=== PATIENT | female | born 1955 | race Caucasian/White ===

== ENCOUNTER 2023-03-28 02:40 | Inpatient (IN) | payer OTHER, MEDICAID ==
[2023-03-28] VITALS (7 sets, daily range): BP systolic 115–138
[~2023-03-28] VITALS: Ht 160 cm; Wt 49.4 kg
[2023-03-28 03:12] LABS: BASOPHILS % (AUTO) 0.3 % (0.0-2.0); EOSINOPHILS # (AUTO) 0.4 K/uL (0.0-0.4); HEMATOCRIT 28.1 % (36-48); LYMPHOCYTES # (AUTO) 0.9 K/uL (1.0-5.5); LYMPHOCYTES % (AUTO) 6.6 % (20.5-51.5); MEAN CORPUSCULAR HEMOGLOBIN 26 pg (27-31); MEAN CORPUSCULAR HGB CONC 32 % (32-36); MEAN CORPUSCULAR VOLUME 82 fL (79.0-98.0); MONOCYTES # (AUTO) 0.6 K/uL (0.0-1.0); MONOCYTES % (AUTO) 4.6 % (1.7-9.3); NEUTROPHILS # (AUTO) 11.3 K/uL (1.8-7.7); NEUTROPHILS % (AUTO) 85.5 % (40.0-70.0); PLATELET COUNT (AUTO) 253 K/uL (130-430); RED BLOOD CELL COUNT(AUTO) 3.45 MIL/uL (4.2-6.2); RED CELL DISTRIBUTION WIDTH 15.8 % (9.0-15.0); WHITE BLOOD COUNT (AUTO) 13.2 K/uL (4.8-10.8)
[2023-03-28 03:29] LABS: ANION GAP 9 (5-15); CALCIUM 8.2 mg/dL (8.4-11.0); CHLORIDE 100 mmol/L (98-107); CREATININE 3.43 mg/dL (0.55-1.30); GFR AFRICAN AMERICAN 17 mL/min (>90); GLUCOSE 213 mg/dL (70-99); UREA NITROGEN, BLOOD 85 mg/dL (8-21)
[2023-03-28 03:35] LABS: ALANINE AMINOTRANSFERASE 18 U/L (12-78); ALBUMIN 1.6 g/dL (3.4-4.8); ASPARTATE AMINOTRANSFERASE 21 U/L (10-37); TOTAL BILIRUBIN 0.2 mg/dL (0.0-1.0)
[2023-03-28] MEDS ORDERED: CEFEPIME 2 GM in D5W 100 ML IV ONE (04:00)
[2023-03-28] MEDS ORDERED: VANCOMYCIN HCL 1,000 MG in NS 250 ML IV ONE (04:00)
[2023-03-28] MEDS ORDERED: IPRATROPIUM/ALBUTEROL SULFATE 3 ML AMPUL.NEB (DUONEB) INH PRN (04:45)
[2023-03-28] MEDS ORDERED: NACL 0.9% 1,000 ML IV ONE (04:45)
[2023-03-28] MEDS ORDERED: VANCOMYCIN HCL 1000 MG/VIAL IV ONE (05:26)
[2023-03-28] MEDS ORDERED: ALPR0.5T PO (08:56)
[2023-03-28] MEDS ORDERED: NOR10 PO (08:56)
[2023-03-28] MEDS ORDERED: ACET325T53 PO (08:56)
[2023-03-28] MEDS ORDERED: DOCU-144 PO (08:56)
[2023-03-28] MEDS ORDERED: BISA10SU61 RC (08:56)
[2023-03-28] MEDS ORDERED: ACET-2634 PO (08:56)
[2023-03-28] MEDS ORDERED: MOM PO (09:08)
[2023-03-28] MEDS ORDERED: METO25TA6 PO (09:08)
[2023-03-28] MEDS ORDERED: HYDR-3917 PO (09:08)
[2023-03-28] MEDS ORDERED: LEVE500T9 PO (09:08)
[2023-03-28] MEDS ORDERED: NEU300 PO (09:08)
[2023-03-28] MEDS ORDERED: METH-797 PO (09:08)
[2023-03-28] MEDS ORDERED: MULT-1089 PO (09:08)
[2023-03-28] MEDS ORDERED: MELA5TAB21 PO (09:08)
[2023-03-28] MEDS ORDERED: PYRI25TA4 PO (09:11)
[2023-03-28] MEDS ORDERED: SENN8.6T19 PO (09:11)
[2023-03-28] MEDS ORDERED: PRO40 PO (09:11)
[2023-03-28] MEDS: PIPERACILLIN/TAZOBACTAM 2.25 GM in NS 50 ML IV SCH ×2 (13:21→21:04)
[2023-03-28] MEDS: IPRATROPIUM/ALBUTEROL SULFATE 3 ML AMPUL.NEB (DUONEB) INH SCH ×2 (13:40→19:43)
[2023-03-28] MEDS ORDERED: MILK OF MAGNESIA 30 ML UDC PO PRN (17:30)
[2023-03-28] MEDS ORDERED: NALOXONE HCL 0.4 MG/ML AMP (NARCAN) IVP PRN (17:30)
[2023-03-28] MEDS ORDERED: BISACODYL 10 MG/SUPPOSITORY RC PRN (17:30)
[2023-03-28] MEDS ORDERED: ACETAMINOPHEN 325 MG TABLET PO PRN (17:30)
[2023-03-28] MEDS ORDERED: ACETAMINOPHEN 500 MG TABLET PO PRN (17:30)
[2023-03-28] MEDS ORDERED: amLODIPine BESYLATE 10 MG TABLET PO ONE (17:45)
[2023-03-28] MEDS: GABAPENTIN 300 MG CAPSULE PO SCH (20:58)
[2023-03-28] MEDS: PANTOPRAZOLE SODIUM 40 MG TAB PO SCH (20:58)
[2023-03-28] MEDS: DOCUSATE SODIUM 100 MG CAPSULE PO SCH (20:58)
[2023-03-28] MEDS: levETIRAcetam 500 MG TABLET PO SCH (20:58)
[2023-03-28] MEDS: SENNOSIDES 8.6 MG TABLET PO SCH (20:58)
[2023-03-28] MEDS: ALPRAZolam 0.25 MG TABLET PO PRN (22:05)
[2023-03-29 00:21] VITALS: BP_SYST 114
[2023-03-29] MEDS: IPRATROPIUM/ALBUTEROL SULFATE 3 ML AMPUL.NEB (DUONEB) INH SCH ×4 (01:00→19:47)
[2023-03-29] MEDS: PIPERACILLIN/TAZOBACTAM 2.25 GM in NS 50 ML IV SCH ×3 (06:06→23:04)
[2023-03-29 08:05] VITALS: BP_SYST 123
[2023-03-29] MEDS: METHADONE HCL 10 MG TABLET PO SCH (08:26)
[2023-03-29] MEDS: DOCUSATE SODIUM 100 MG CAPSULE PO SCH ×2 (08:26→20:35)
[2023-03-29] MEDS: levETIRAcetam 500 MG TABLET PO SCH ×2 (08:26→20:35)
[2023-03-29] MEDS: GABAPENTIN 300 MG CAPSULE PO SCH ×2 (08:27→20:35)
[2023-03-29] MEDS: PANTOPRAZOLE SODIUM 40 MG TAB PO SCH ×2 (08:27→20:35)
[2023-03-29] MEDS: MULTIVITAMINS TAB 1 TABLET PO SCH (08:27)
[2023-03-29] MEDS: METOPROLOL TARTRATE 25 MG TABLET PO SCH (08:27)
[2023-03-29] MEDS: amLODIPine BESYLATE 10 MG TABLET PO SCH (08:27)
[2023-03-29 11:08] LABS: BASOPHILS % (AUTO) 0.2 % (0.0-2.0); EOSINOPHILS # (AUTO) 0.5 K/uL (0.0-0.4); EOSINOPHILS % (AUTO) 2.7 % (0.0-4.0); HEMATOCRIT 26.1 % (36-48); HEMOGLOBIN 8.3 g/dL (12.0-16.0); LYMPHOCYTES # (AUTO) 0.4 K/uL (1.0-5.5); LYMPHOCYTES % (AUTO) 2.1 % (20.5-51.5); MEAN CORPUSCULAR HEMOGLOBIN 26 pg (27-31); MEAN CORPUSCULAR HGB CONC 32 % (32-36); MEAN CORPUSCULAR VOLUME 82 fL (79.0-98.0); MONOCYTES # (AUTO) 0.5 K/uL (0.0-1.0); MONOCYTES % (AUTO) 2.5 % (1.7-9.3); NEUTROPHILS # (AUTO) 18.5 K/uL (1.8-7.7); NEUTROPHILS % (AUTO) 92.5 % (40.0-70.0); PLATELET COUNT (AUTO) 294 K/uL (130-430); RED BLOOD CELL COUNT(AUTO) 3.18 MIL/uL (4.2-6.2)
[2023-03-29 11:24] VITALS: BP_SYST 103
[2023-03-29 11:29] LABS: ALBUMIN 1.4 g/dL (3.4-4.8); CALCIUM 7.3 mg/dL (8.4-11.0); CREATININE 2.87 mg/dL (0.55-1.30); TOTAL BILIRUBIN 0.2 mg/dL (0.0-1.0)
[2023-03-29] MEDS ORDERED: FLUCONAZOLE 100 MG TABLET (DIFLUCAN) PO ONE (13:45)
[2023-03-29] MEDS: NACL 0.9% 1,000 ML IV SCH (15:06)
[2023-03-29 15:16] VITALS: BP_SYST 127
[2023-03-29] MEDS: DAPTOmycin 300 MG in NS 50 ML IV SCH (17:06)
[2023-03-29 20:00] VITALS: BP_SYST 113
[2023-03-29] MEDS: HYDROcodone/ACETAMIN 5-325 MG TAB (NORCO/ VICODIN) PO PRN (20:38)
[2023-03-29] MEDS: SENNOSIDES 8.6 MG TABLET PO SCH (20:57)
[2023-03-29] MEDS: NYSTATIN 15 GM TOPICAL POWDER TP SCH (20:57)
[2023-03-29] MEDS: CLOTRIMAZOLE/BETAMET DIPROP 15 GM TUBE TP SCH (20:57)
[2023-03-30] VITALS: BP_SYST 108
[2023-03-30 05:43] LABS: BASOPHILS % (AUTO) 0.2 % (0.0-2.0); EOSINOPHILS # (AUTO) 0.6 K/uL (0.0-0.4); EOSINOPHILS % (AUTO) 3.3 % (0.0-4.0); HEMATOCRIT 26.7 % (36-48); HEMOGLOBIN 8.5 g/dL (12.0-16.0); LYMPHOCYTES # (AUTO) 0.8 K/uL (1.0-5.5); LYMPHOCYTES % (AUTO) 4.2 % (20.5-51.5); MEAN CORPUSCULAR HEMOGLOBIN 26 pg (27-31); MEAN CORPUSCULAR HGB CONC 32 % (32-36); MEAN CORPUSCULAR VOLUME 82 fL (79.0-98.0); MONOCYTES # (AUTO) 0.5 K/uL (0.0-1.0); MONOCYTES % (AUTO) 2.7 % (1.7-9.3); NEUTROPHILS # (AUTO) 16.9 K/uL (1.8-7.7); NEUTROPHILS % (AUTO) 89.6 % (40.0-70.0); PLATELET COUNT (AUTO) 342 K/uL (130-430); RED BLOOD CELL COUNT(AUTO) 3.27 MIL/uL (4.2-6.2); RED CELL DISTRIBUTION WIDTH 15.8 % (9.0-15.0); WHITE BLOOD COUNT (AUTO) 18.9 K/uL (4.8-10.8)
[2023-03-30] MEDS: PIPERACILLIN/TAZOBACTAM 2.25 GM in NS 50 ML IV SCH ×3 (06:04→21:07)
[2023-03-30] MEDS: NACL 0.9% 1,000 ML IV SCH (06:05)
[2023-03-30 06:33] LABS: ALBUMIN 1.4 g/dL (3.4-4.8); CALCIUM 7.9 mg/dL (8.4-11.0); CREATININE 2.71 mg/dL (0.55-1.30); TOTAL BILIRUBIN 0.2 mg/dL (0.0-1.0)
[2023-03-30] MEDS: IPRATROPIUM/ALBUTEROL SULFATE 3 ML AMPUL.NEB (DUONEB) INH SCH ×3 (07:30→19:42)
[2023-03-30 08:00] VITALS: BP_SYST 112
[2023-03-30] MEDS: DOCUSATE SODIUM 100 MG CAPSULE PO SCH ×2 (09:00→21:00)
[2023-03-30] MEDS: PANTOPRAZOLE SODIUM 40 MG TAB PO SCH ×2 (09:14→21:07)
[2023-03-30] MEDS: levETIRAcetam 500 MG TABLET PO SCH ×2 (09:14→21:07)
[2023-03-30] MEDS: FLUCONAZOLE 100 MG TABLET (DIFLUCAN) PO SCH (09:15)
[2023-03-30] MEDS: GABAPENTIN 300 MG CAPSULE PO SCH ×2 (09:15→21:07)
[2023-03-30] MEDS: MULTIVITAMINS TAB 1 TABLET PO SCH (09:15)
[2023-03-30] MEDS: amLODIPine BESYLATE 10 MG TABLET PO SCH (09:16)
[2023-03-30] MEDS: METOPROLOL TARTRATE 25 MG TABLET PO SCH (09:16)
[2023-03-30] MEDS: CLOTRIMAZOLE/BETAMET DIPROP 15 GM TUBE TP SCH ×2 (09:17→21:07)
[2023-03-30] MEDS: NYSTATIN 15 GM TOPICAL POWDER TP SCH ×2 (09:17→21:07)
[2023-03-30] MEDS: METHADONE HCL 10 MG TABLET PO SCH (09:17)
[2023-03-30] MEDS ORDERED: GLUCOSE (DEXTROSE) ORAL GEL -Adults PO PRN (10:30)
[2023-03-30] MEDS ORDERED: D5W 1,000 ML IV PRN (10:30)
[2023-03-30] MEDS ORDERED: DEXTROSE 50%-WATER 50 ML DISP.SYRIN IVP PRN (10:30)
[2023-03-30 11:12] LABS: BILIRUBIN,URINE NEGATIVE (NEGATIVE); COLOR,URINE YELLOW (YELLOW); GLUCOSE,URINE 1+ (NEGATIVE); KETONES,URINE NEGATIVE (NEGATIVE); LEUKOCYTE ESTERASE ,URINE NEGATIVE (NEGATIVE); NITRITE, URINE NEGATIVE (NEGATIVE); PROTEIN URINE 2+ (NEGATIVE); UROBILINOGEN,URINE 0.2 (0.2-1.0)
[2023-03-30 11:24] VITALS: BP_SYST 115
[2023-03-30 11:25] LABS: BLOOD, URINE TRACE (NEGATIVE)
[2023-03-30] MEDS: INSULIN REGULAR, HUMAN 100 UNITS/ML, 3 ML VIAL (humuLIN R) SUBCUT PRN ×3 (11:34→21:40)
[2023-03-30 11:41] LABS: BACTERIA,URINE None Seen /HPF (None Seen); CLARITY/URINE SLIGHTLY CLOUDY (CLEAR); RBC,URINE 0-3 /HPF (0-3); URINE AMORPHOUS URATE 2+ /HPF (None Seen); WBC,URINE 0-3 /HPF (0-3)
[2023-03-30 15:26] VITALS: BP_SYST 116
[2023-03-30] MEDS: HYDROcodone/ACETAMIN 5-325 MG TAB (NORCO/ VICODIN) PO PRN (16:22)
[2023-03-30 20:00] VITALS: BP_SYST 120
[2023-03-30] MEDS: SENNOSIDES 8.6 MG TABLET PO SCH (21:00)
[2023-03-30] MEDS: ALPRAZolam 0.25 MG TABLET PO PRN (21:34)
[2023-03-31] VITALS (7 sets, daily range): BP systolic 114–129
[2023-03-31] MEDS: NACL 0.9% 1,000 ML IV SCH ×2 (00:20→16:49)
[2023-03-31] MEDS: IPRATROPIUM/ALBUTEROL SULFATE 3 ML AMPUL.NEB (DUONEB) INH SCH ×4 (01:00→19:29)
[2023-03-31] MEDS: PIPERACILLIN/TAZOBACTAM 2.25 GM in NS 50 ML IV SCH ×3 (05:22→22:25)
[2023-03-31 05:30] LABS: BASOPHILS % (AUTO) 0.1 % (0.0-2.0); EOSINOPHILS # (AUTO) 0.4 K/uL (0.0-0.4); EOSINOPHILS % (AUTO) 2.5 % (0.0-4.0); HEMATOCRIT 23.2 % (36-48); HEMOGLOBIN 7.5 g/dL (12.0-16.0); LYMPHOCYTES # (AUTO) 0.7 K/uL (1.0-5.5); LYMPHOCYTES % (AUTO) 4.5 % (20.5-51.5); MEAN CORPUSCULAR HEMOGLOBIN 26 pg (27-31); MEAN CORPUSCULAR HGB CONC 32 % (32-36); MEAN CORPUSCULAR VOLUME 81 fL (79.0-98.0); MONOCYTES # (AUTO) 0.4 K/uL (0.0-1.0); MONOCYTES % (AUTO) 2.6 % (1.7-9.3); NEUTROPHILS # (AUTO) 14.9 K/uL (1.8-7.7); NEUTROPHILS % (AUTO) 90.3 % (40.0-70.0); PLATELET COUNT (AUTO) 295 K/uL (130-430); RED BLOOD CELL COUNT(AUTO) 2.87 MIL/uL (4.2-6.2); RED CELL DISTRIBUTION WIDTH 15.5 % (9.0-15.0); WHITE BLOOD COUNT (AUTO) 16.5 K/uL (4.8-10.8)
[2023-03-31 05:32] LABS: ANION GAP 8 (5-15); CHLORIDE 106 mmol/L (98-107); CREATININE 2.51 mg/dL (0.55-1.30); GFR AFRICAN AMERICAN 25 mL/min (>90); GLUCOSE 148 mg/dL (70-99); UREA NITROGEN, BLOOD 65 mg/dL (8-21)
[2023-03-31 05:44] LABS: ALANINE AMINOTRANSFERASE 11 U/L (12-78); ALBUMIN 1.3 g/dL (3.4-4.8); ASPARTATE AMINOTRANSFERASE 10 U/L (10-37); CHOLESTEROL 81 mg/dL (<200); HDL CHOLESTEROL 32 mg/dL (>55); THYROID STIMULATING HORMONE 0.44 uIu/mL (0.34-4.82); TOTAL BILIRUBIN 0.1 mg/dL (0.0-1.0); TRIGLYCERIDES 65 mg/dL (30-150)
[2023-03-31] MEDS: amLODIPine BESYLATE 10 MG TABLET PO SCH (08:10)
[2023-03-31] MEDS: levETIRAcetam 500 MG TABLET PO SCH ×2 (08:11→21:42)
[2023-03-31] MEDS: PANTOPRAZOLE SODIUM 40 MG TAB PO SCH ×2 (08:11→21:43)
[2023-03-31] MEDS: METOPROLOL TARTRATE 25 MG TABLET PO SCH (08:11)
[2023-03-31] MEDS: FLUCONAZOLE 100 MG TABLET (DIFLUCAN) PO SCH (08:12)
[2023-03-31] MEDS: MULTIVITAMINS TAB 1 TABLET PO SCH (08:12)
[2023-03-31] MEDS: GABAPENTIN 300 MG CAPSULE PO SCH ×2 (08:12→21:42)
[2023-03-31] MEDS: DOCUSATE SODIUM 100 MG CAPSULE PO SCH ×2 (08:12→21:00)
[2023-03-31] MEDS: METHADONE HCL 10 MG TABLET PO SCH (08:12)
[2023-03-31] MEDS: ALPRAZolam 0.25 MG TABLET PO PRN (08:19)
[2023-03-31] MEDS: INSULIN REGULAR, HUMAN 100 UNITS/ML, 3 ML VIAL (humuLIN R) SUBCUT PRN ×3 (11:40→21:49)
[2023-03-31] MEDS: CLOTRIMAZOLE/BETAMET DIPROP 15 GM TUBE TP SCH ×2 (13:43→21:45)
[2023-03-31] MEDS: NYSTATIN 15 GM TOPICAL POWDER TP SCH ×2 (13:43→21:42)
[2023-03-31] MEDS: DAPTOmycin 300 MG in NS 50 ML IV SCH (16:49)
[2023-03-31] MEDS: SENNOSIDES 8.6 MG TABLET PO SCH (21:00)
[2023-04-01 00:23] VITALS: BP_SYST 139
[2023-04-01] MEDS: ALPRAZolam 0.25 MG TABLET PO PRN ×2 (02:20→09:49)
[2023-04-01 05:02] LABS: BASOPHILS % (AUTO) 0.2 % (0.0-2.0); EOSINOPHILS # (AUTO) 0.3 K/uL (0.0-0.4); HEMATOCRIT 22.8 % (36-48); HEMOGLOBIN 7.4 g/dL (12.0-16.0); LYMPHOCYTES # (AUTO) 0.7 K/uL (1.0-5.5); LYMPHOCYTES % (AUTO) 4.6 % (20.5-51.5); MEAN CORPUSCULAR HEMOGLOBIN 27 pg (27-31); MEAN CORPUSCULAR HGB CONC 32 % (32-36); MEAN CORPUSCULAR VOLUME 82 fL (79.0-98.0); MONOCYTES # (AUTO) 0.6 K/uL (0.0-1.0); MONOCYTES % (AUTO) 4.1 % (1.7-9.3); NEUTROPHILS # (AUTO) 12.7 K/uL (1.8-7.7); NEUTROPHILS % (AUTO) 89.1 % (40.0-70.0); PLATELET COUNT (AUTO) 289 K/uL (130-430); RED BLOOD CELL COUNT(AUTO) 2.77 MIL/uL (4.2-6.2); RED CELL DISTRIBUTION WIDTH 16.2 % (9.0-15.0); WHITE BLOOD COUNT (AUTO) 14.2 K/uL (4.8-10.8)
[2023-04-01] MEDS: IPRATROPIUM/ALBUTEROL SULFATE 3 ML AMPUL.NEB (DUONEB) INH SCH ×4 (05:14→20:00)
[2023-04-01] MEDS: PIPERACILLIN/TAZOBACTAM 2.25 GM in NS 50 ML IV SCH ×3 (05:35→21:29)
[2023-04-01 05:41] LABS: ALBUMIN 1.1 g/dL (3.4-4.8); CALCIUM 8.2 mg/dL (8.4-11.0); CREATININE 2.47 mg/dL (0.55-1.30); TOTAL BILIRUBIN 0.1 mg/dL (0.0-1.0)
[2023-04-01 08:00] VITALS: BP_SYST 118
[2023-04-01] MEDS: METHADONE HCL 10 MG TABLET PO SCH (09:49)
[2023-04-01] MEDS: PANTOPRAZOLE SODIUM 40 MG TAB PO SCH ×2 (09:50→21:19)
[2023-04-01] MEDS: levETIRAcetam 500 MG TABLET PO SCH ×2 (09:50→21:19)
[2023-04-01] MEDS: GABAPENTIN 300 MG CAPSULE PO SCH ×2 (09:50→21:19)
[2023-04-01] MEDS: MULTIVITAMINS TAB 1 TABLET PO SCH (09:50)
[2023-04-01] MEDS: amLODIPine BESYLATE 10 MG TABLET PO SCH (09:50)
[2023-04-01] MEDS: FLUCONAZOLE 100 MG TABLET (DIFLUCAN) PO SCH (09:50)
[2023-04-01] MEDS: DOCUSATE SODIUM 100 MG CAPSULE PO SCH ×2 (09:50→21:00)
[2023-04-01] MEDS: METOPROLOL TARTRATE 25 MG TABLET PO SCH (09:52)
[2023-04-01] MEDS: NACL 0.9% 1,000 ML IV SCH (09:53)
[2023-04-01] MEDS ORDERED: SODIUM POLYSTYRENE SULFONATE 15 GM/60 ML UDBTL PO ONE (10:00)
[2023-04-01 11:24] VITALS: BP_SYST 141
[2023-04-01] MEDS: NYSTATIN 15 GM TOPICAL POWDER TP SCH ×2 (13:35→21:20)
[2023-04-01] MEDS: INSULIN REGULAR, HUMAN 100 UNITS/ML, 3 ML VIAL (humuLIN R) SUBCUT PRN ×3 (13:38→21:26)
[2023-04-01 15:13] VITALS: BP_SYST 114
[2023-04-01] MEDS ORDERED: FUROSEMIDE 20 MG/2 ML VIAL IVP ONE (15:45)
[2023-04-01] MEDS: CLOTRIMAZOLE/BETAMET DIPROP 15 GM TUBE TP SCH ×2 (18:39→21:00)
[2023-04-01 19:55] VITALS: BP_SYST 129
[2023-04-01] MEDS: SENNOSIDES 8.6 MG TABLET PO SCH (21:00)
[2023-04-01 21:50] VITALS: BP_SYST 125
== END 2023-04-01 23:44 | DRG 871 ==
LOC: SED 02:40 → STU 04:36 → SMU 03-31 11:10
PROVIDERS: ADMIT Family Medicine; ATTEND Family Medicine
PROC: 30233N1 Transfusion of Nonautologous Red Blood Cells into Peripheral Vein, Percutaneous Approach (ICD-10-PCS; principal; 2023-04-01)
DX: A41.9 Sepsis, unspecified organism (principal); J15.9 Unspecified bacterial pneumonia; J96.00 Acute respiratory failure, unspecified whether with hypoxia or hypercapnia; N17.9 Acute kidney failure, unspecified; L03.116 Cellulitis of left lower limb; I13.0 Hypertensive heart and chronic kidney disease with heart failure and stage 1 through stage 4 chronic kidney disease, or unspecified chronic kidney disease; I50.30 Unspecified diastolic (congestive) heart failure; N18.4 Chronic kidney disease, stage 4 (severe); F03.90 Unspecified dementia, unspecified severity, without behavioral disturbance, psychotic disturbance, mood disturbance, and anxiety; G89.4 Chronic pain syndrome; E11.610 Type 2 diabetes mellitus with diabetic neuropathic arthropathy; E11.51 Type 2 diabetes mellitus with diabetic peripheral angiopathy without gangrene; I25.10 Atherosclerotic heart disease of native coronary artery without angina pectoris; D64.9 Anemia, unspecified; L89.159 Pressure ulcer of sacral region, unspecified stage; E11.40 Type 2 diabetes mellitus with diabetic neuropathy, unspecified; Z20.822 Contact with and (suspected) exposure to COVID-19; E11.22 Type 2 diabetes mellitus with diabetic chronic kidney disease; S31.000A Unspecified open wound of lower back and pelvis without penetration into retroperitoneum, initial encounter; X58.XXXA Exposure to other specified factors, initial encounter; Y93.89 Activity, other specified; Y92.89 Other specified places as the place of occurrence of the external cause; Y99.8 Other external cause status; Z74.01 Bed confinement status; Z79.4 Long term (current) use of insulin; Z86.73 Personal history of transient ischemic attack (TIA), and cerebral infarction without residual deficits; Z87.891 Personal history of nicotine dependence; Z95.1 Presence of aortocoronary bypass graft; Z99.3 Dependence on wheelchair
CPT/HCPCS: 36415; 71045; 73030; 76770; 80053; 80061; 81000; 83605; 83880; 84443; 84484; 85025; 86886; 86900; 86901; 86920; 87040; 87070-TC; 87081; 87186-TC; 92610-GN; 93005; 93306; 94640; 94760; 96365; 99291; G0378; J0878; J1940; J2543; J3370; P9021

== ENCOUNTER 2024-01-27 12:21 | Inpatient (IN) | payer OTHER, MEDICAID ==
[~2024-01-27] VITALS: Ht 167.6 cm; Wt 66.3 kg
[2024-01-27] VITALS (9 sets, daily range): BP systolic 14–194; PULSE 72–105; RESP 17–31; TEMP 97.1–102.3; O2SAT 96–100
[~2024-01-27 12:21] MED LIST: ACET-2634 PO; ACET325T53 PO; ALPR0.5T PO; BISA10SU61 RC; DOCU-144 PO; HYDR-3917 PO; LEVE500T9 PO; MELA5TAB21 PO; METH-797 PO; METO25TA6 PO; MOM PO; MULT-1089 PO; NEU300 PO; NOR10 PO; PRO40 PO; PYRI25TA4 PO; SENN8.6T19 PO
[2024-01-27 12:58] LABS: ABG O2 SAT% ESTIMATE 98.1 % (94.0-100.0); BLOOD GAS HCO3 21.3 mmol/L (21.0-27.0); BLOOD GAS PCO2 40.9 mmHg (35.0-45.0)
[2024-01-27 13:02] LABS: HEMATOCRIT 32.9 % (36-48); HEMOGLOBIN 10.9 g/dL (12.0-16.0); MEAN CORPUSCULAR HEMOGLOBIN 28 pg (27-31); MEAN CORPUSCULAR HGB CONC 33 % (32-36); MEAN CORPUSCULAR VOLUME 83 fL (79.0-98.0); PLATELET COUNT (AUTO) 202 K/uL (130-430); RED BLOOD CELL COUNT(AUTO) 3.95 MIL/uL (4.2-6.2); RED CELL DISTRIBUTION WIDTH 17.1 % (9.0-15.0); WHITE BLOOD COUNT (AUTO) 15.4 K/uL (4.8-10.8)
[2024-01-27 13:02] LABS: BLOOD GAS BASE EXCESS -4.3 mmol/L (-3.0-3.0); BLOOD GAS PH 7.334 (7.350-7.450); BLOOD GAS PO2 119.1 mmHg (75.0-100.0)
[2024-01-27 13:21] LABS: ANION GAP 8 (5-15); CARBON DIOXIDE 26 mmol/L (23-29); CHLORIDE 106 mmol/L (98-107); CREATININE 2.23 mg/dL (0.55-1.30); GFR AFRICAN AMERICAN 28 mL/min (>90); GLUCOSE 147 mg/dL (74-106); SODIUM SERUM 140 mmol/L (136-145); UREA NITROGEN, BLOOD 66 mg/dL (8-21)
[2024-01-27 13:29] LABS: GFR NON AFRICAN-AMERICAN 23 mL/min (>90)
[2024-01-27 13:33] LABS: POTASSIUM 6.2 mmol/L (3.5-5.1)
[2024-01-27 13:39] LABS: ANISOCYTOSIS 1+; BAND % (MANUAL) 8 % (0-6); BASOPHILS % (MANUAL) 0 % (0-2); EOSINOPHILS % (MANUAL) 0 % (0-7); LYMPHOCYTES % (MANUAL) 7 % (20-46); MONOCYTES % (MANUAL) 1 % (0-11); PLATELET ESTIMATE ADEQUATE (ADEQUATE)
[2024-01-27] MEDS ORDERED: CALCIUM CHLORIDE 1 GM/10ML VIAL (13.6 mEq Ca++/VIAL) IV ONE (13:45)
[2024-01-27] MEDS ORDERED: PIPERACILLIN/TAZO 4.5 GM in NS 100 ML IV ONE (14:00)
[2024-01-27 14:19] LABS: BILIRUBIN,URINE NEGATIVE (NEGATIVE); BLOOD, URINE 3+ (NEGATIVE); CLARITY/URINE CLEAR (CLEAR); COLOR,URINE YELLOW (YELLOW); GLUCOSE,URINE TRACE (NEGATIVE); KETONES,URINE NEGATIVE (NEGATIVE); LEUKOCYTE ESTERASE ,URINE NEGATIVE (NEGATIVE); NITRITE, URINE NEGATIVE (NEGATIVE); PH,URINE 6.5 (5.0-8.0); PROTEIN URINE 3+ (NEGATIVE); UROBILINOGEN,URINE 0.2 (0.2-1.0)
[2024-01-27 14:49] LABS: RBC,URINE >100 /HPF (0-3); WBC,URINE 0-3 /HPF (0-3)
[2024-01-27] MEDS ORDERED: HYDR-3927 PO (14:49)
[2024-01-27] MEDS ORDERED: FURO-149 PO (14:49)
[2024-01-27] MEDS ORDERED: SSNOVOLOG SUBCUT (14:49)
[2024-01-27] MEDS ORDERED: CALC667T6 PO (14:49)
[2024-01-27] MEDS ORDERED: NEPH PO (14:49)
[2024-01-27] MEDS ORDERED: MORP15TA PO (14:49)
[2024-01-27 14:50] LABS: BACTERIA,URINE FEW /HPF (None Seen); MUCUS,URINE 1+ /LPF (None Seen)
[2024-01-27] MEDS: NITROGLYCERIN 1 INCH (GM) OINT. TP ONE (15:13)
[2024-01-27] MEDS: FUROSEMIDE 100 MG/10 ML VIAL IVP ONE (15:13)
[2024-01-27] MEDS ORDERED: NALOXONE HCL 0.4 MG/ML AMP (NARCAN) IVP PRN ×3 (18:45→19:00)
[2024-01-27] MEDS ORDERED: MORPHINE 2 MG/ML INJ. SYRINGE IVP PRN (19:00)
[2024-01-27] MEDS: MORPHINE 2 MG/ML INJ. SYRINGE IVP ONE (19:02)
[2024-01-27] MEDS: HEPARIN SODIUM,PORCINE 5,000 UNITS/ML VIAL MC ONE (19:30)
[2024-01-27] MEDS: ACETAMINOPHEN 650 MG SUPP.RECT RC PRN (20:07)
[2024-01-27] MEDS: SODIUM BICARBONATE 8.4% JECT 50 MEQ/50 ML SYRINGE IVP ONE (21:00)
[2024-01-27] MEDS: CALCIUM CHLORIDE 1 GM/10 ML DISP.SYRIN (14 mEq Ca++/SYR) IV ONE (21:00)
[2024-01-27] MEDS: DEXTROSE 50% JECT 50 ML DISP.SYRIN IVP ONE (21:00)
[2024-01-27] MEDS: SODIUM POLYSTYRENE SULFONATE 15 GM/60 ML UDBTL PO ONE (21:00)
[2024-01-27] MEDS: INSULIN REGULAR, HUMAN 10 UNITS/0.1 ML, 3 ML VIAL IVP ONE (21:00)
[2024-01-27 21:57] LABS: CALCIUM 8.6 mg/dL (8.4-11.0); CREATININE 1.62 mg/dL (0.55-1.30); POTASSIUM 4.6 mmol/L (3.5-5.1)
[2024-01-27 22:00] LABS: INR 1.1 (0.8-1.2); PROTHROMBIN TIME 11.2 SECS (9.5-12.5)
[2024-01-27] MEDS: NITROGLYCERIN 1 INCH (GM) OINT. TP SCH (22:00)
[2024-01-27 22:01] LABS: ALBUMIN 2.8 g/dL (3.4-4.8); TOTAL BILIRUBIN 0.4 mg/dL (0.0-1.0); TOTAL PROTEIN, SERUM 7.9 g/dL (6.4-8.3)
[2024-01-27] MEDS: VANCOMYCIN HCL 1,000 MG in NS 250 ML IV ONE (22:23)
[2024-01-28] VITALS (17 sets, daily range): BP systolic 103–180; PULSE 76–104; RESP 13–22; TEMP 98.9–99.9; O2SAT 94–99
[2024-01-28 04:38] LABS: BASOPHILS % (AUTO) 0.1 % (0.0-2.0); EOSINOPHILS % (AUTO) 0.1 % (0.0-4.0); HEMATOCRIT 31.8 % (36-48); HEMOGLOBIN 10.4 g/dL (12.0-16.0); LYMPHOCYTES # (AUTO) 0.5 K/uL (1.0-5.5); LYMPHOCYTES % (AUTO) 3.1 % (20.5-51.5); MEAN CORPUSCULAR HEMOGLOBIN 27 pg (27-31); MEAN CORPUSCULAR HGB CONC 33 % (32-36); MEAN CORPUSCULAR VOLUME 83 fL (79.0-98.0); MONOCYTES # (AUTO) 0.4 K/uL (0.0-1.0); MONOCYTES % (AUTO) 2.6 % (1.7-9.3); NEUTROPHILS # (AUTO) 15.7 K/uL (1.8-7.7); NEUTROPHILS % (AUTO) 94.1 % (40.0-70.0); PLATELET COUNT (AUTO) 161 K/uL (130-430); RED BLOOD CELL COUNT(AUTO) 3.85 MIL/uL (4.2-6.2); RED CELL DISTRIBUTION WIDTH 16.7 % (9.0-15.0); WHITE BLOOD COUNT (AUTO) 16.7 K/uL (4.8-10.8)
[2024-01-28 05:02] LABS: ALBUMIN 2.6 g/dL (3.4-4.8); CALCIUM 8.7 mg/dL (8.4-11.0); CREATININE 1.92 mg/dL (0.55-1.30); POTASSIUM 4.6 mmol/L (3.5-5.1); TOTAL BILIRUBIN 0.4 mg/dL (0.0-1.0); TOTAL PROTEIN, SERUM 7.5 g/dL (6.4-8.3); VANCOMYCIN,RANDOM 23.2 ug/mL (20.0-30.0)
[2024-01-28] MEDS ORDERED: ACETAMINOPHEN 325 MG TABLET PO PRN (07:30)
[2024-01-28] MEDS ORDERED: INSULIN ASPART 100 UNITS/ML, 10 ML VIAL (NovoLOG) SUBCUT PRN (07:30)
[2024-01-28] MEDS: MORPHINE 2 MG/ML INJ. SYRINGE IVP PRN (07:42)
[2024-01-28] MEDS: hydrALAZINE HCL 20 MG/ML VIAL IVP PRN (08:41)
[2024-01-28] MEDS ORDERED: PYRIDOXINE HCL 50 MG PO SCH (09:00)
[2024-01-28] MEDS ORDERED: NON-FORMULARY MEDICATION (Calcium Acetate 2 TAB) PO SCH (09:00)
[2024-01-28] MEDS: MORPHINE 4 MG INJ. 4 MG/ML VIAL IVP PRN (09:57)
[2024-01-28] MEDS: HALOPERIDOL 5 MG TABLET (HALDOL) PO ONE (09:57)
[2024-01-28] MEDS: ONDANSETRON HCL 4 MG/2 ML VIAL IVP PRN (09:58)
[2024-01-28] MEDS: levETIRAcetam 500 MG TABLET PO SCH (09:58)
[2024-01-28] MEDS: METOPROLOL TARTRATE 25 MG TABLET PO SCH (09:59)
[2024-01-28] MEDS: PYRIDOXINE HCL 50 MG TABLET PO SCH (10:00)
[2024-01-28] MEDS: CALCIUM ACETATE 667 MG CAP PO SCH (10:00)
[2024-01-28] MEDS ORDERED: ALPR0.25 PO (11:41)
[2024-01-28] MEDS ORDERED: MORP-92 PO (11:41)
[2024-01-28] MEDS: QUEtiapine FUMARATE 25 MG TABLET PO ONE (13:02)
[2024-01-28] MEDS: LEVOFLOXACIN 250 MG/D5W 50 ML IV SCH (19:09)
[2024-01-28] MEDS: NYSTATIN 15 GM TOPICAL POWDER TP SCH (21:00)
[2024-01-28] MEDS: HALOPERIDOL 5 MG TABLET (HALDOL) PO SCH (21:19)
[2024-01-28] MEDS: QUEtiapine FUMARATE 25 MG TABLET PO SCH (21:19)
[2024-01-28] MEDS: VANCOMYCIN HCL 750 MG in NS 250 ML IV SCH (21:19)
[2024-01-29 00:08] VITALS: BP_SYST 89; PULSE 90; RESP 17; TEMP 97.2; O2SAT 100
[2024-01-29 05:53] LABS: BASOPHILS % (AUTO) 0.4 % (0.0-2.0); EOSINOPHILS # (AUTO) 0.1 K/uL (0.0-0.4); EOSINOPHILS % (AUTO) 0.8 % (0.0-4.0); HEMATOCRIT 26.7 % (36-48); HEMOGLOBIN 8.9 g/dL (12.0-16.0); LYMPHOCYTES # (AUTO) 0.9 K/uL (1.0-5.5); LYMPHOCYTES % (AUTO) 10.9 % (20.5-51.5); MEAN CORPUSCULAR HEMOGLOBIN 27 pg (27-31); MEAN CORPUSCULAR HGB CONC 33 % (32-36); MEAN CORPUSCULAR VOLUME 82 fL (79.0-98.0); MONOCYTES # (AUTO) 0.6 K/uL (0.0-1.0); MONOCYTES % (AUTO) 7.1 % (1.7-9.3); NEUTROPHILS # (AUTO) 6.7 K/uL (1.8-7.7); NEUTROPHILS % (AUTO) 80.8 % (40.0-70.0); PLATELET COUNT (AUTO) 127 K/uL (130-430); RED BLOOD CELL COUNT(AUTO) 3.25 MIL/uL (4.2-6.2); WHITE BLOOD COUNT (AUTO) 8.3 K/uL (4.8-10.8)
[2024-01-29 06:24] LABS: ALBUMIN 2.3 g/dL (3.4-4.8); CREATININE 2.52 mg/dL (0.55-1.30); POTASSIUM 4.8 mmol/L (3.5-5.1); THYROID STIMULATING HORMONE 0.51 uIu/mL (0.34-4.82); TOTAL BILIRUBIN 0.3 mg/dL (0.0-1.0); TOTAL PROTEIN, SERUM 6.6 g/dL (6.4-8.3)
[2024-01-29 08:00] VITALS: BP_SYST 129; PULSE 83; RESP 16; TEMP 98.2; O2SAT 97
[2024-01-29] MEDS ORDERED: HEPARIN SODIUM, PORCINE 10,000 UNITS/ 10 ML VIAL MC ONE (09:45)
[2024-01-29 11:27] VITALS: BP_SYST 81; PULSE 88; RESP 16; TEMP 97; O2SAT 100
[2024-01-29] MEDS: INSULIN LISPRO SLIDING SCALE 100 UNITS/ML, 3 ML VIAL (humaLOG) SUBCUT PRN (13:26)
[2024-01-29 16:09] VITALS: BP_SYST 89; PULSE 80; RESP 15; TEMP 97; O2SAT 100
[2024-01-29] MEDS ORDERED: NALOXONE HCL 0.4 MG/ML AMP (NARCAN) IVP PRN (17:30)
[2024-01-29] MEDS: HYDROcodone/ACETAMIN 5-325 MG TAB (NORCO/ VICODIN) PO PRN (18:36)
[2024-01-29] MEDS: BALSAM PERU/CASTOR OIL 56.7 GM OINT...G. TP SCH (18:37)
[2024-01-29] MEDS: NYSTATIN 15 GM TOPICAL POWDER TP SCH (22:54)
[2024-01-29] MEDS: TEMAZEPAM 15 MG CAPSULE PO PRN (23:28)
[2024-01-30] VITALS (7 sets, daily range): BP systolic 89–175; PULSE 69–78; RESP 16–20; TEMP 97.2–97.7; O2SAT 98–100
[2024-01-30] MEDS ORDERED: QUEtiapine FUMARATE 25 MG TABLET PO SCH (21:00)
[2024-01-31] MEDS ORDERED: FLUoxetine HCL 10 MG CAPSULE (PROzac) PO SCH (09:00)
[2024-02-02] MEDS ORDERED: EPOETIN ALFA-EPBX 4,000 UNITS/ML VIAL SUBCUT SCH (09:00)
== END 2024-01-30 17:45 | DRG 871 ==
LOC: SED 12:21 → SIC 14:43 → STU 01-28 17:27
PROVIDERS: ADMIT Internal Medicine; ATTEND Internal Medicine
PROC: 5A09357 Assistance with Respiratory Ventilation, Less than 24 Consecutive Hours, Continuous Positive Airway Pressure (ICD-10-PCS; principal; 2024-01-27)
PROC: 5A1D70Z Performance of Urinary Filtration, Intermittent, Less than 6 Hours Per Day (ICD-10-PCS; 2024-01-27)
PROC: 05HY33Z Insertion of Infusion Device into Upper Vein, Percutaneous Approach (ICD-10-PCS; 2024-01-27)
PROC: 5A1D70Z Performance of Urinary Filtration, Intermittent, Less than 6 Hours Per Day (ICD-10-PCS; 2024-01-29)
DX: A41.02 Sepsis due to Methicillin resistant Staphylococcus aureus (principal); E43 Unspecified severe protein-calorie malnutrition; I50.43 Acute on chronic combined systolic (congestive) and diastolic (congestive) heart failure; N18.6 End stage renal disease; J96.01 Acute respiratory failure with hypoxia; I13.2 Hypertensive heart and chronic kidney disease with heart failure and with stage 5 chronic kidney disease, or end stage renal disease; E87.5 Hyperkalemia; Z66 Do not resuscitate; I25.10 Atherosclerotic heart disease of native coronary artery without angina pectoris; G89.4 Chronic pain syndrome; G40.909 Epilepsy, unspecified, not intractable, without status epilepticus; E78.5 Hyperlipidemia, unspecified; D64.9 Anemia, unspecified; E11.51 Type 2 diabetes mellitus with diabetic peripheral angiopathy without gangrene; E11.40 Type 2 diabetes mellitus with diabetic neuropathy, unspecified; E83.39 Other disorders of phosphorus metabolism; E11.22 Type 2 diabetes mellitus with diabetic chronic kidney disease; Z99.2 Dependence on renal dialysis; Z95.1 Presence of aortocoronary bypass graft; Z79.4 Long term (current) use of insulin; Z87.01 Personal history of pneumonia (recurrent); Z74.01 Bed confinement status; Z68.23 Body mass index [BMI] 23.0-23.9, adult
CPT/HCPCS: 36415; 36600; 71045; 80048; 80053; 80202; 81000; 81001; 81015; 82803; 82948; 83880; 84443; 84484; 85007; 85025; 85027; 85610; 85730; 87040; 87081; 87186; 90935; 90937; 93005; 93306; 94660; 94760; 99291; G0378; J0360; J1644; J1940; J1956; J2270; J2405; J2543; J3370; J7050

== ENCOUNTER 2024-03-31 16:16 | Inpatient (IN) | payer OTHER, MEDICAID ==
[~2024-03-31] VITALS: Ht 152.4 cm; Wt 76.4 kg
[~2024-03-31 16:16] MED LIST changes: +ALPR0.25 PO; -ALPR0.5T PO; +CALC667T6 PO; +FURO-149 PO; +HYDR-3927 PO; -MELA5TAB21 PO; -METH-797 PO; +MORP-92 PO; -MULT-1089 PO; +NEPH PO; -PYRI25TA4 PO; +SSNOVOLOG SUBCUT
[2024-03-31 16:17] VITALS: BP_SYST 214; PULSE 131; RESP 26; TEMP 96.2; O2SAT 98
[2024-03-31] MEDS: IPRATROPIUM/ALBUTEROL SULFATE 3 ML AMPUL.NEB (DUONEB) INH ONE ×2 (16:48→17:08)
[2024-03-31 16:53] LABS: BASOPHILS % (AUTO) 0.4 % (0.0-2.0); EOSINOPHILS # (AUTO) 0.1 K/uL (0.0-0.4); EOSINOPHILS % (AUTO) 0.5 % (0.0-4.0); HEMATOCRIT 33.8 % (36-48); HEMOGLOBIN 10.8 g/dL (12.0-16.0); LYMPHOCYTES # (AUTO) 1.5 K/uL (1.0-5.5); LYMPHOCYTES % (AUTO) 13.5 % (20.5-51.5); MEAN CORPUSCULAR HEMOGLOBIN 26 pg (27-31); MEAN CORPUSCULAR HGB CONC 32 % (32-36); MEAN CORPUSCULAR VOLUME 81 fL (79.0-98.0); MONOCYTES # (AUTO) 0.7 K/uL (0.0-1.0); MONOCYTES % (AUTO) 6.1 % (1.7-9.3); NEUTROPHILS % (AUTO) 79.5 % (40.0-70.0); PLATELET COUNT (AUTO) 329 K/uL (130-430); RED BLOOD CELL COUNT(AUTO) 4.16 MIL/uL (4.2-6.2); RED CELL DISTRIBUTION WIDTH 16.5 % (9.0-15.0); WHITE BLOOD COUNT (AUTO) 11.3 K/uL (4.8-10.8)
[2024-03-31 17:11] LABS: INR 1.4 (0.8-1.2); PROTHROMBIN TIME 13.9 SECS (9.5-12.5)
[2024-03-31 17:46] LABS: ANION GAP 15 (5-15); CALCIUM 8.9 mg/dL (8.4-11.0); CARBON DIOXIDE 25 mmol/L (23-29); CHLORIDE 98 mmol/L (98-107); CREATINE KINASE, TOTAL 34 U/L (26-192); CREATININE 2.49 mg/dL (0.55-1.30); GFR AFRICAN AMERICAN 25 mL/min (>90); GLUCOSE 134 mg/dL (74-106); LACTATE DEHYDROGENASE 132 U/L (81-234); POTASSIUM 3.6 mmol/L (3.5-5.1); SODIUM SERUM 138 mmol/L (136-145); UREA NITROGEN, BLOOD 21 mg/dL (8-21)
[2024-03-31 17:47] LABS: GFR NON AFRICAN-AMERICAN 20 mL/min (>90)
[2024-03-31] MEDS ORDERED: cefTRIAXone 1 GM VIAL ONE (18:01)
[2024-03-31] MEDS: cefTRIAXone 1 GM in D5W 50 ML IV ONE (18:05)
[2024-03-31 18:23] LABS: BILIRUBIN,URINE NEGATIVE (NEGATIVE); BLOOD, URINE 2+ (NEGATIVE); CLARITY/URINE CLEAR (CLEAR); COLOR,URINE YELLOW (YELLOW); GLUCOSE,URINE NEGATIVE (NEGATIVE); KETONES,URINE TRACE (NEGATIVE); LEUKOCYTE ESTERASE ,URINE 3+ (NEGATIVE); NITRITE, URINE NEGATIVE (NEGATIVE); PROTEIN URINE 3+ (NEGATIVE); UROBILINOGEN,URINE 0.2 (0.2-1.0)
[2024-03-31 18:27] LABS: BACTERIA,URINE MANY /HPF (None Seen)
[2024-03-31] MEDS: IPRATROPIUM/ALBUTEROL SULFATE 3 ML AMPUL.NEB (DUONEB) INH SCH (19:00)
[2024-03-31] MEDS: FUROSEMIDE 100 MG/10 ML VIAL IVP ONE (19:42)
[2024-03-31] MEDS: D5/0.45 NS 1,000 ML IV SCH (19:43)
[2024-03-31 20:40] VITALS: BP_SYST 114; PULSE 80; O2SAT 98
[2024-03-31] MEDS: PIPERACILLIN/TAZOBACTAM 2.25 GM in NS 50 ML IV SCH (22:43)
[2024-03-31 23:00] VITALS: BP_SYST 117; PULSE 81; RESP 20; TEMP 98.2; O2SAT 100
[2024-04-01] VITALS (8 sets, daily range): BP systolic 114–137; PULSE 70–81; RESP 16–18; TEMP 97.9–98.7; O2SAT 94–97
[2024-04-01] MEDS ORDERED: BISACODYL 10 MG/SUPPOSITORY RC PRN (08:15)
[2024-04-01] MEDS: GABAPENTIN 400 MG CAPSULE PO SCH (10:38)
[2024-04-01] MEDS: ATORVASTATIN 20 MG TABLET PO SCH (10:39)
[2024-04-01] MEDS: PANTOPRAZOLE SODIUM 40 MG TAB PO SCH (10:39)
[2024-04-01] MEDS: METOPROLOL TARTRATE 25 MG TABLET PO SCH (10:39)
[2024-04-01] MEDS: amLODIPine BESYLATE 5 MG TABLET PO SCH (10:39)
[2024-04-01] MEDS: levETIRAcetam 500 MG TABLET PO SCH (10:39)
[2024-04-01 10:45] LABS: BASOPHILS % (AUTO) 0.3 % (0.0-2.0); EOSINOPHILS # (AUTO) 0.1 K/uL (0.0-0.4); EOSINOPHILS % (AUTO) 1.4 % (0.0-4.0); HEMATOCRIT 30.8 % (36-48); HEMOGLOBIN 9.8 g/dL (12.0-16.0); LYMPHOCYTES # (AUTO) 0.8 K/uL (1.0-5.5); MEAN CORPUSCULAR HEMOGLOBIN 26 pg (27-31); MEAN CORPUSCULAR HGB CONC 32 % (32-36); MEAN CORPUSCULAR VOLUME 82 fL (79.0-98.0); MONOCYTES # (AUTO) 0.4 K/uL (0.0-1.0); MONOCYTES % (AUTO) 6.5 % (1.7-9.3); NEUTROPHILS # (AUTO) 5.2 K/uL (1.8-7.7); NEUTROPHILS % (AUTO) 79.8 % (40.0-70.0); PLATELET COUNT (AUTO) 260 K/uL (130-430); RED BLOOD CELL COUNT(AUTO) 3.77 MIL/uL (4.2-6.2); RED CELL DISTRIBUTION WIDTH 16.6 % (9.0-15.0); WHITE BLOOD COUNT (AUTO) 6.6 K/uL (4.8-10.8)
[2024-04-01 15:40] LABS: ALBUMIN 2.2 g/dL (3.4-4.8); CALCIUM 8.1 mg/dL (8.4-11.0); CREATININE 2.99 mg/dL (0.55-1.30); POTASSIUM 3.5 mmol/L (3.5-5.1); TOTAL BILIRUBIN 0.4 mg/dL (0.0-1.0); TOTAL PROTEIN, SERUM 6.4 g/dL (6.4-8.3)
[2024-04-01] MEDS: VANCOMYCIN HCL 750 MG in NS 250 ML IV SCH (17:05)
[2024-04-01] MEDS: IPRATROPIUM/ALBUTEROL SULFATE 3 ML AMPUL.NEB (DUONEB) INH SCH (19:35)
[2024-04-02] VITALS (9 sets, daily range): BP systolic 102–124; PULSE 68–79; RESP 16–18; TEMP 96.7–98.2; O2SAT 93–100
[2024-04-02 05:40] LABS: BASOPHILS % (AUTO) 0.2 % (0.0-2.0); EOSINOPHILS # (AUTO) 0.3 K/uL (0.0-0.4); HEMATOCRIT 29.5 % (36-48); HEMOGLOBIN 9.4 g/dL (12.0-16.0); LYMPHOCYTES # (AUTO) 0.7 K/uL (1.0-5.5); LYMPHOCYTES % (AUTO) 7.9 % (20.5-51.5); MEAN CORPUSCULAR HEMOGLOBIN 26 pg (27-31); MEAN CORPUSCULAR HGB CONC 32 % (32-36); MEAN CORPUSCULAR VOLUME 82 fL (79.0-98.0); MONOCYTES # (AUTO) 0.5 K/uL (0.0-1.0); MONOCYTES % (AUTO) 6.2 % (1.7-9.3); NEUTROPHILS # (AUTO) 6.8 K/uL (1.8-7.7); NEUTROPHILS % (AUTO) 82.7 % (40.0-70.0); PLATELET COUNT (AUTO) 248 K/uL (130-430); RED BLOOD CELL COUNT(AUTO) 3.59 MIL/uL (4.2-6.2); RED CELL DISTRIBUTION WIDTH 16.4 % (9.0-15.0); WHITE BLOOD COUNT (AUTO) 8.3 K/uL (4.8-10.8)
[2024-04-02 06:09] LABS: ALBUMIN 2.3 g/dL (3.4-4.8); CALCIUM 8.3 mg/dL (8.4-11.0); CREATININE 3.17 mg/dL (0.55-1.30); POTASSIUM 3.4 mmol/L (3.5-5.1); TOTAL BILIRUBIN 0.3 mg/dL (0.0-1.0); TOTAL PROTEIN, SERUM 6.5 g/dL (6.4-8.3)
[2024-04-02] MEDS ORDERED: NALOXONE HCL 0.4 MG/ML AMP (NARCAN) IVP PRN (11:45)
[2024-04-02] MEDS: HYDROcodone/ACETAMIN 5-325 MG TAB (NORCO/ VICODIN) PO PRN (11:53)
[2024-04-02] MEDS: HEPARIN SODIUM,PORCINE 5,000 UNITS/ML VIAL ONE (13:19)
[2024-04-02] MEDS: HEPARIN SODIUM, PORCINE 10,000 UNITS/ 10 ML VIAL MC ONE (13:30)
[2024-04-02] MEDS: ONDANSETRON HCL 4 MG/2 ML VIAL IVP PRN (22:17)
[2024-04-03] VITALS (8 sets, daily range): BP systolic 117–140; PULSE 71–79; RESP 16–20; TEMP 97.4–98.2; O2SAT 94–98
[2024-04-03] MEDS: LOPERAMIDE HCL 2 MG CAPSULE PO ONE (14:15)
[2024-04-04] VITALS (7 sets, daily range): BP systolic 129–143; PULSE 57–89; RESP 16–20; TEMP 96.8–99.2; O2SAT 92–97
[2024-04-04 07:51] LABS: CREATININE 3.41 mg/dL (0.55-1.30); POTASSIUM 3.7 mmol/L (3.5-5.1)
[2024-04-04 07:55] LABS: BASOPHILS % (AUTO) 0.3 % (0.0-2.0); EOSINOPHILS # (AUTO) 0.3 K/uL (0.0-0.4); EOSINOPHILS % (AUTO) 4.9 % (0.0-4.0); HEMATOCRIT 29.4 % (36-48); HEMOGLOBIN 9.4 g/dL (12.0-16.0); LYMPHOCYTES # (AUTO) 0.7 K/uL (1.0-5.5); LYMPHOCYTES % (AUTO) 10.8 % (20.5-51.5); MEAN CORPUSCULAR HEMOGLOBIN 26 pg (27-31); MEAN CORPUSCULAR HGB CONC 32 % (32-36); MEAN CORPUSCULAR VOLUME 81 fL (79.0-98.0); MONOCYTES # (AUTO) 0.4 K/uL (0.0-1.0); MONOCYTES % (AUTO) 5.4 % (1.7-9.3); NEUTROPHILS # (AUTO) 5.3 K/uL (1.8-7.7); NEUTROPHILS % (AUTO) 78.6 % (40.0-70.0); PLATELET COUNT (AUTO) 206 K/uL (130-430); RED BLOOD CELL COUNT(AUTO) 3.62 MIL/uL (4.2-6.2); RED CELL DISTRIBUTION WIDTH 16.7 % (9.0-15.0); WHITE BLOOD COUNT (AUTO) 6.7 K/uL (4.8-10.8)
[2024-04-04] MEDS: SIMETHICONE 80 MG TAB.CHEW PO PRN (12:28)
[2024-04-04] MEDS: METOCLOPRAMIDE HCL 10 MG/2 ML VIAL IVP PRN (12:29)
[2024-04-04] MEDS: IPRATROPIUM/ALBUTEROL SULFATE 3 ML AMPUL.NEB (DUONEB) INH PRN (15:38)
[2024-04-04] MEDS: EPOETIN ALFA-EPBX 4,000 UNITS/ML VIAL SUBCUT SCH (17:38)
[2024-04-05] VITALS (8 sets, daily range): BP systolic 119–135; PULSE 69–80; RESP 16–19; TEMP 97–98.4; O2SAT 89–97
[2024-04-05] MEDS: LOPERAMIDE HCL 2 MG CAPSULE PO ONE (00:49)
[2024-04-05 04:47] LABS: BASOPHILS % (AUTO) 0.7 % (0.0-2.0); EOSINOPHILS # (AUTO) 0.3 K/uL (0.0-0.4); EOSINOPHILS % (AUTO) 3.9 % (0.0-4.0); HEMATOCRIT 28.9 % (36-48); HEMOGLOBIN 9.4 g/dL (12.0-16.0); LYMPHOCYTES # (AUTO) 0.7 K/uL (1.0-5.5); LYMPHOCYTES % (AUTO) 11.1 % (20.5-51.5); MEAN CORPUSCULAR HEMOGLOBIN 26 pg (27-31); MEAN CORPUSCULAR HGB CONC 32 % (32-36); MEAN CORPUSCULAR VOLUME 81 fL (79.0-98.0); MONOCYTES # (AUTO) 0.4 K/uL (0.0-1.0); MONOCYTES % (AUTO) 5.3 % (1.7-9.3); NEUTROPHILS # (AUTO) 5.3 K/uL (1.8-7.7); PLATELET COUNT (AUTO) 200 K/uL (130-430); RED BLOOD CELL COUNT(AUTO) 3.58 MIL/uL (4.2-6.2); RED CELL DISTRIBUTION WIDTH 16.7 % (9.0-15.0); WHITE BLOOD COUNT (AUTO) 6.7 K/uL (4.8-10.8)
[2024-04-05 05:02] LABS: CREATININE 3.83 mg/dL (0.55-1.30); POTASSIUM 3.9 mmol/L (3.5-5.1); TOTAL BILIRUBIN 0.3 mg/dL (0.0-1.0); TOTAL PROTEIN, SERUM 6.2 g/dL (6.4-8.3)
[2024-04-05] MEDS: ACETAMINOPHEN 325 MG TABLET PO PRN (08:24)
[2024-04-05] MEDS: HEPARIN SODIUM,PORCINE 5,000 UNITS/ML VIAL ONE (14:07)
[2024-04-05] MEDS: HEPARIN SODIUM,PORCINE 5,000 UNITS/ML VIAL IVP ONE (15:00)
[2024-04-05] MEDS: DIPHENOXYLATE HCL/ATROP SULF 2.5 MG TAB PO ONE (16:01)
[2024-04-05] MEDS: CEFEPIME 2 GM in D5W 100 ML IV SCH (16:02)
[2024-04-05] MEDS: LACTOBACILLUS RHAMNOSUS GG 1 CAP CAPSULE PO SCH (20:18)
[2024-04-05] MEDS: metroNIDAZOLE 500 mg/NS 100 ML IV SCH (21:52)
[2024-04-06] VITALS (9 sets, daily range): BP systolic 139–153; PULSE 69–78; RESP 18–20; TEMP 97–98.2; O2SAT 92–98
[2024-04-06] MEDS: DIPHENOXYLATE HCL/ATROP SULF 2.5 MG TAB PO PRN (19:12)
[2024-04-07] VITALS (8 sets, daily range): BP systolic 132–159; PULSE 73–87; RESP 18–22; TEMP 97–97.6; O2SAT 95–100
[2024-04-07] MEDS ORDERED: CEFE2FRO IV (12:24)
[2024-04-07] MEDS: HEPARIN SODIUM,PORCINE 5,000 UNITS/ML VIAL IVP ONE (13:06)
[2024-04-08] VITALS (10 sets, daily range): BP systolic 124–162; PULSE 76–91; RESP 18–20; TEMP 97–97.9; O2SAT 94–100
[2024-04-08] MEDS: ALPRAZolam 0.25 MG TABLET PO PRN (15:08)
[2024-04-09] VITALS (12 sets, daily range): BP systolic 132–155; PULSE 70–101; RESP 16–22; TEMP 97.6–98.6; O2SAT 93–98
[2024-04-09] MEDS: HEPARIN SODIUM,PORCINE 5,000 UNITS/ML VIAL MC ONE (13:30)
== END 2024-04-09 19:00 | DRG 91 ==
LOC: SED 16:16 → STU 18:57 → SMU 04-09 18:51
PROVIDERS: ADMIT Family Medicine; ATTEND Family Medicine
PROC: 5A1D70Z Performance of Urinary Filtration, Intermittent, Less than 6 Hours Per Day (ICD-10-PCS; 2024-04-02)
PROC: 5A1D70Z Performance of Urinary Filtration, Intermittent, Less than 6 Hours Per Day (ICD-10-PCS; 2024-04-05)
PROC: 5A1D70Z Performance of Urinary Filtration, Intermittent, Less than 6 Hours Per Day (ICD-10-PCS; 2024-04-07)
PROC: 5A1D70Z Performance of Urinary Filtration, Intermittent, Less than 6 Hours Per Day (ICD-10-PCS; principal; 2024-04-09)
DX: G92.8 Other toxic encephalopathy (principal); E43 Unspecified severe protein-calorie malnutrition; J96.01 Acute respiratory failure with hypoxia; N18.6 End stage renal disease; N39.0 Urinary tract infection, site not specified; I13.2 Hypertensive heart and chronic kidney disease with heart failure and with stage 5 chronic kidney disease, or end stage renal disease; I50.42 Chronic combined systolic (congestive) and diastolic (congestive) heart failure; Z16.24 Resistance to multiple antibiotics; I24.89 Other forms of acute ischemic heart disease; Z66 Do not resuscitate; E11.51 Type 2 diabetes mellitus with diabetic peripheral angiopathy without gangrene; E11.40 Type 2 diabetes mellitus with diabetic neuropathy, unspecified; E11.22 Type 2 diabetes mellitus with diabetic chronic kidney disease; B96.20 Unspecified Escherichia coli [E. coli] as the cause of diseases classified elsewhere; G40.909 Epilepsy, unspecified, not intractable, without status epilepticus; G89.4 Chronic pain syndrome; I25.10 Atherosclerotic heart disease of native coronary artery without angina pectoris; Z74.01 Bed confinement status; Z87.01 Personal history of pneumonia (recurrent); Z87.891 Personal history of nicotine dependence; Z95.1 Presence of aortocoronary bypass graft; Z99.2 Dependence on renal dialysis; Z79.899 Other long term (current) drug therapy; Z88.1 Allergy status to other antibiotic agents; Z68.25 Body mass index [BMI] 25.0-25.9, adult
CPT/HCPCS: 36415; 71045; 74018; 78580; 80048; 80053; 80061; 81000; 81001; 81015; 82550; 83037; 83605; 83615; 83735; 83880; 84484; 85025; 85379; 85610; 85730; 87040; 87081; 87086; 87186; 87230; 90935; 90937; 93005; 93970; 94070; 94640; 94760; 96365; 96375; 99291; A9540; G0378; J0692; J0696; J1644; J1940; J2405; J2543; J2765; J3490; J7050; J7060; Q5106

== ENCOUNTER 2024-07-07 10:27 | Inpatient (IN) | payer OTHER, MEDICAID ==
[~2024-07-07] VITALS: Ht 165.1 cm; Wt 72.2 kg
[2024-07-07 10:27] VITALS: BP_SYST 159; PULSE 88; RESP 19; TEMP 101.6; O2SAT 92
[~2024-07-07 10:27] MED LIST changes: -ACET-2634 PO; -ALPR0.25 PO; -CALC667T6 PO; -DOCU-144 PO; -FURO-149 PO; -HYDR-3917 PO; -HYDR-3927 PO; -MOM PO; -MORP-92 PO; -NEPH PO; -SENN8.6T19 PO; -SSNOVOLOG SUBCUT
[2024-07-07] MEDS: NS 1000 ML IV.SOLN IV ONE (11:30)
[2024-07-07] MEDS: PIPERACILLIN/TAZO 3.375 GM in NS 50 ML IV ONE (11:34)
[2024-07-07] MEDS ORDERED: PIPERACILLIN/TAZOBACTAM 3.375 GM/VIAL (ZOSYN) IV ONE ×2 (11:37)
[2024-07-07 11:40] LABS: BILIRUBIN,URINE NEGATIVE (NEGATIVE); BLOOD, URINE 3+ (NEGATIVE); COLOR,URINE YELLOW (YELLOW); GLUCOSE,URINE 2+ (NEGATIVE); KETONES,URINE NEGATIVE (NEGATIVE); LEUKOCYTE ESTERASE ,URINE NEGATIVE (NEGATIVE); NITRITE, URINE NEGATIVE (NEGATIVE); PROTEIN URINE 3+ (NEGATIVE); UROBILINOGEN,URINE 0.2 (0.2-1.0)
[2024-07-07] MEDS: ACETAMINOPHEN 325 MG TABLET PO ONE (11:40)
[2024-07-07] MEDS: ACETAMINOPHEN 325 MG SUPP.RECT RC ONE (11:42)
[2024-07-07 11:43] LABS: BASOPHILS % (AUTO) 0.2 % (0.0-2.0); EOSINOPHILS % (AUTO) 0.1 % (0.0-4.0); HEMATOCRIT 40.8 % (36-48); HEMOGLOBIN 12.9 g/dL (12.0-16.0); LYMPHOCYTES # (AUTO) 0.5 K/uL (1.0-5.5); MEAN CORPUSCULAR HEMOGLOBIN 26 pg (27-31); MEAN CORPUSCULAR HGB CONC 32 % (32-36); MEAN CORPUSCULAR VOLUME 82 fL (79.0-98.0); MONOCYTES # (AUTO) 0.7 K/uL (0.0-1.0); MONOCYTES % (AUTO) 4.1 % (1.7-9.3); NEUTROPHILS # (AUTO) 16.7 K/uL (1.8-7.7); NEUTROPHILS % (AUTO) 92.6 % (40.0-70.0); PLATELET COUNT (AUTO) 156 K/uL (130-430); RED CELL DISTRIBUTION WIDTH 18.5 % (9.0-15.0); WHITE BLOOD COUNT (AUTO) 18.1 K/uL (4.8-10.8)
[2024-07-07 11:43] LABS: CLARITY/URINE CLOUDY (CLEAR)
[2024-07-07 11:59] LABS: ALANINE AMINOTRANSFERASE 18 U/L (12-78); ALBUMIN 2.6 g/dL (3.4-4.8); ANION GAP 10 (5-15); ASPARTATE AMINOTRANSFERASE 19 U/L (10-37); CALCIUM 8.5 mg/dL (8.4-11.0); CARBON DIOXIDE 24 mmol/L (23-29); CHLORIDE 105 mmol/L (98-107); CREATININE 3.58 mg/dL (0.55-1.30); GFR AFRICAN AMERICAN 16 mL/min (>90); GLUCOSE 204 mg/dL (74-106); POTASSIUM 5.5 mmol/L (3.5-5.1); SODIUM SERUM 139 mmol/L (136-145); TOTAL BILIRUBIN 0.4 mg/dL (0.0-1.0); TOTAL PROTEIN, SERUM 7.3 g/dL (6.4-8.3); UREA NITROGEN, BLOOD 61 mg/dL (8-21)
[2024-07-07 12:00] LABS: GFR NON AFRICAN-AMERICAN 13 mL/min (>90); PROTHROMBIN TIME 10.8 SECS (9.5-12.5)
[2024-07-07 12:02] LABS: BACTERIA,URINE None Seen /HPF (None Seen); RBC,URINE 20-50 /HPF (0-3); WBC,URINE NONE SEEN /HPF (0-3)
[2024-07-07 12:02] LABS: BILIRUBIN,DIRECT 0.2 mg/dL (0.0-0.3)
[2024-07-07 12:10] LABS: INFLUENZA TYPE A Negative (NEGATIVE); INFLUENZA TYPE B NEGATIVE (NEGATIVE)
[2024-07-07] MEDS: ONDANSETRON HCL 4 MG/2 ML VIAL IVP ONE ×2 (12:45→12:48)
[2024-07-07] MEDS ORDERED: VANCOMYCIN HCL 1000 MG/VIAL IV ONE ×2 (12:46)
[2024-07-07] MEDS: VANCOMYCIN HCL 1,000 MG in NS 250 ML IV ONE (12:47)
[2024-07-07] MEDS ORDERED: ALPR0.5T8 PO (13:12)
[2024-07-07] MEDS ORDERED: AMLO10TA88 PO (13:12)
[2024-07-07] MEDS ORDERED: GABA-534 PO (13:12)
[2024-07-07] MEDS ORDERED: HYDR-3921 PO (13:13)
[2024-07-07] MEDS ORDERED: BACL5TAB PO (13:13)
[2024-07-07] MEDS ORDERED: AMLO5TAB92 PO (13:13)
[2024-07-07] MEDS ORDERED: TRAZ-250 PO (13:13)
[2024-07-07] MEDS ORDERED: LEVE500T21 PO (13:13)
[2024-07-07] MEDS ORDERED: PANT40TA45 PO (13:13)
[2024-07-07] MEDS ORDERED: SEN30 PO (13:17)
[2024-07-07] MEDS ORDERED: PIPERACILLIN/TAZO 3.375 GM in NS 50 ML IV SCH (13:30)
[2024-07-07] MEDS: SODIUM POLYSTYRENE SULFONATE 15 GM/60 ML UDBTL PO ONE (16:40)
[2024-07-07] MEDS ORDERED: SODIUM POLYSTYRENE SULFONATE 15 GM/60 ML UDBTL ONE (16:41)
[2024-07-07] MEDS: HEPARIN SODIUM,PORCINE 5,000 UNITS/ML VIAL MC ONE (20:00)
[2024-07-07] MEDS ORDERED: PIPERACILLIN/TAZOBACTAM 2.25 GM/ D5W 50 ML IV SCH (20:00)
[2024-07-07] MEDS: ACETAMINOPHEN 500 MG TABLET PO PRN (21:03)
[2024-07-07 22:33] VITALS: BP_SYST 116; PULSE 83; RESP 18; TEMP 98.7
[2024-07-07] MEDS: HYDROcodone/ACETAMIN 5-325 MG TAB (NORCO/ VICODIN) PO ONE (23:00)
[2024-07-07] MEDS: ALPRAZolam 0.25 MG TABLET PO PRN (23:21)
[2024-07-07] MEDS: HYDROcodone/ACETAMIN 5-325 MG TAB (NORCO/ VICODIN) PO PRN (23:22)
[2024-07-07] MEDS ORDERED: ACETAMINOPHEN 325 MG TABLET PO PRN (23:30)
[2024-07-07] MEDS ORDERED: BISACODYL 10 MG/SUPPOSITORY RC PRN (23:30)
[2024-07-08 00:37] VITALS: BP_SYST 137; PULSE 83; RESP 16; TEMP 99; O2SAT 99
[2024-07-08] MEDS: PIPERACILLIN/TAZOBACTAM 2.25 GM VIAL IV ONE (00:38)
[2024-07-08] MEDS: PIPERACILLIN/TAZOBACTAM 2.25 GM/ D5W 50 ML IV SCH (01:00)
[2024-07-08] MEDS: traZODone HCL 50 MG TABLET (DESYREL) PO PRN (03:29)
[2024-07-08 08:13] VITALS: BP_SYST 168; PULSE 102; RESP 14; TEMP 102.2; O2SAT 98
[2024-07-08] MEDS: GABAPENTIN 400 MG CAPSULE PO SCH (08:28)
[2024-07-08] MEDS: CINACALCET HCL 30 MG TABLET PO SCH (08:28)
[2024-07-08] MEDS: ACETAMINOPHEN 500 MG TABLET PO PRN (08:28)
[2024-07-08] MEDS: PANTOPRAZOLE SODIUM 40 MG TAB PO SCH (08:30)
[2024-07-08] MEDS: amLODIPine BESYLATE 5 MG TABLET PO SCH (08:30)
[2024-07-08] MEDS: METOPROLOL TARTRATE 25 MG TABLET PO SCH (08:30)
[2024-07-08] MEDS: levETIRAcetam 500 MG TABLET PO SCH (08:30)
[2024-07-08 10:29] VITALS: O2SAT 98
[2024-07-08 11:11] LABS: CALCIUM 8.3 mg/dL (8.4-11.0); CREATININE 2.27 mg/dL (0.55-1.30); POTASSIUM 3.6 mmol/L (3.5-5.1)
[2024-07-08] MEDS: VANCOMYCIN HCL 750 MG in NS 250 ML IV SCH (11:38)
[2024-07-08 12:30] VITALS: BP_SYST 127; PULSE 77; RESP 16; TEMP 99.5; O2SAT 99
[2024-07-08 17:52] VITALS: BP_SYST 153; PULSE 89; RESP 18; TEMP 96.8; O2SAT 92; O2SAT 97
[2024-07-08 21:00] VITALS: O2SAT 97
[2024-07-09] VITALS: BP_SYST 122; PULSE 106; RESP 18; TEMP 97.3; O2SAT 100
[2024-07-09 08:15] VITALS: BP_SYST 136; PULSE 85; RESP 18; TEMP 98.4; O2SAT 99
[2024-07-09 08:23] LABS: ALBUMIN 1.9 g/dL (3.4-4.8); CALCIUM 7.9 mg/dL (8.4-11.0); CREATININE 3.25 mg/dL (0.55-1.30); POTASSIUM 4.1 mmol/L (3.5-5.1); TOTAL BILIRUBIN 0.3 mg/dL (0.0-1.0); TOTAL PROTEIN, SERUM 6.1 g/dL (6.4-8.3); VANCOMYCIN,RANDOM 23.8 ug/mL (20.0-30.0)
[2024-07-09 08:28] LABS: BASOPHILS % (AUTO) 0.3 % (0.0-2.0); EOSINOPHILS # (AUTO) 0.3 K/uL (0.0-0.4); EOSINOPHILS % (AUTO) 4.3 % (0.0-4.0); HEMATOCRIT 34.3 % (36-48); HEMOGLOBIN 10.8 g/dL (12.0-16.0); LYMPHOCYTES # (AUTO) 0.8 K/uL (1.0-5.5); LYMPHOCYTES % (AUTO) 11.8 % (20.5-51.5); MEAN CORPUSCULAR HEMOGLOBIN 26 pg (27-31); MEAN CORPUSCULAR HGB CONC 32 % (32-36); MEAN CORPUSCULAR VOLUME 82 fL (79.0-98.0); MONOCYTES # (AUTO) 0.6 K/uL (0.0-1.0); MONOCYTES % (AUTO) 9.5 % (1.7-9.3); NEUTROPHILS # (AUTO) 5.1 K/uL (1.8-7.7); NEUTROPHILS % (AUTO) 74.1 % (40.0-70.0); PLATELET COUNT (AUTO) 132 K/uL (130-430); RED CELL DISTRIBUTION WIDTH 18.6 % (9.0-15.0)
[2024-07-09 08:37] LABS: WHITE BLOOD COUNT (AUTO) 6.8 K/uL (4.8-10.8)
[2024-07-09] MEDS: ALTEPLASE 2 MG VIAL MC ONE (13:50)
[2024-07-09 16:15] VITALS: BP_SYST 141; PULSE 79; RESP 18; TEMP 98.6; O2SAT 98
[2024-07-09 20:05] VITALS: O2SAT 100
[2024-07-09 20:06] VITALS: BP_SYST 135; PULSE 100; RESP 20; TEMP 97.2; O2SAT 100
[2024-07-10 01:10] VITALS: BP_SYST 123; PULSE 78; RESP 16; TEMP 97.7; O2SAT 98
[2024-07-10 08:05] VITALS: BP_SYST 144; PULSE 82; RESP 20; TEMP 99.4; O2SAT 98
[2024-07-10 11:06] VITALS: BP_SYST 145; PULSE 87; RESP 16; TEMP 98.8; O2SAT 98
[2024-07-10] MEDS ORDERED: ALTEPLASE 2 MG VIAL MC ONE (14:00)
[2024-07-10 16:08] VITALS: BP_SYST 145; PULSE 85; RESP 16; TEMP 98.5; O2SAT 98
[2024-07-10 19:00] VITALS: BP_SYST 143; PULSE 84; RESP 16; TEMP 98.2; O2SAT 96; O2SAT 98
[2024-07-10 20:00] VITALS: BP_SYST 143; PULSE 84; RESP 16; TEMP 98.2; O2SAT 98
[2024-07-11 02:23] VITALS: BP_SYST 153; PULSE 77; RESP 17; TEMP 98.1; O2SAT 97
[2024-07-11 06:42] LABS: BASOPHILS % (AUTO) 0.6 % (0.0-2.0); EOSINOPHILS # (AUTO) 0.3 K/uL (0.0-0.4); EOSINOPHILS % (AUTO) 5.1 % (0.0-4.0); HEMATOCRIT 32.7 % (36-48); HEMOGLOBIN 10.3 g/dL (12.0-16.0); LYMPHOCYTES # (AUTO) 0.9 K/uL (1.0-5.5); LYMPHOCYTES % (AUTO) 14.4 % (20.5-51.5); MEAN CORPUSCULAR HEMOGLOBIN 26 pg (27-31); MEAN CORPUSCULAR HGB CONC 32 % (32-36); MEAN CORPUSCULAR VOLUME 82 fL (79.0-98.0); MONOCYTES # (AUTO) 0.7 K/uL (0.0-1.0); MONOCYTES % (AUTO) 11.5 % (1.7-9.3); NEUTROPHILS % (AUTO) 68.4 % (40.0-70.0); PLATELET COUNT (AUTO) 149 K/uL (130-430); RED CELL DISTRIBUTION WIDTH 17.9 % (9.0-15.0); WHITE BLOOD COUNT (AUTO) 5.9 K/uL (4.8-10.8)
[2024-07-11 06:44] LABS: ALBUMIN 1.7 g/dL (3.4-4.8); CALCIUM 7.5 mg/dL (8.4-11.0); CREATININE 2.72 mg/dL (0.55-1.30); POTASSIUM 3.9 mmol/L (3.5-5.1); TOTAL BILIRUBIN 0.3 mg/dL (0.0-1.0); TOTAL PROTEIN, SERUM 5.8 g/dL (6.4-8.3)
[2024-07-11 08:15] VITALS: BP_SYST 136; PULSE 82; RESP 15; TEMP 98; O2SAT 92
[2024-07-11 11:37] VITALS: BP_SYST 138; PULSE 77; RESP 16; TEMP 97; O2SAT 93
[2024-07-11 14:29] VITALS: BP_SYST 138; PULSE 77; RESP 15; TEMP 97.9; O2SAT 93
[2024-07-11] MEDS: ONDANSETRON HCL 4 MG/2 ML VIAL IVP PRN (14:48)
[2024-07-11 15:20] VITALS: BP_SYST 144; PULSE 84; RESP 16; TEMP 97.6; O2SAT 93
== END 2024-07-11 16:10 | DRG 871 ==
LOC: SED 10:27 → STU 13:24
PROVIDERS: ADMIT Family Medicine; ATTEND Family Medicine
DX: A41.9 Sepsis, unspecified organism (principal); N18.6 End stage renal disease; T82.41XA Breakdown (mechanical) of vascular dialysis catheter, initial encounter; G93.40 Encephalopathy, unspecified; L03.116 Cellulitis of left lower limb; I13.2 Hypertensive heart and chronic kidney disease with heart failure and with stage 5 chronic kidney disease, or end stage renal disease; N39.0 Urinary tract infection, site not specified; E11.22 Type 2 diabetes mellitus with diabetic chronic kidney disease; E11.40 Type 2 diabetes mellitus with diabetic neuropathy, unspecified; F41.9 Anxiety disorder, unspecified; G89.4 Chronic pain syndrome; Z20.822 Contact with and (suspected) exposure to COVID-19; Y83.8 Other surgical procedures as the cause of abnormal reaction of the patient, or of later complication, without mention of misadventure at the time of the procedure; I50.9 Heart failure, unspecified; G40.909 Epilepsy, unspecified, not intractable, without status epilepticus; Z99.2 Dependence on renal dialysis; Z79.899 Other long term (current) drug therapy; Z88.8 Allergy status to other drugs, medicaments and biological substances; Y92.89 Other specified places as the place of occurrence of the external cause
CPT/HCPCS: 36415; 71045; 71250-TC; 80048; 80053; 80076; 80202; 81000; 81001; 81015; 83605; 84484; 85025; 85610; 85730; 86886; 86900; 86901; 87040; 87081; 87086; 87186; 90935; 90937; 93005; 93306; 96365; 99285; G0378; J1644; J2405; J2543; J2997; J3370; J7050; J7060